=== PATIENT | male | born 1945 | race Caucasian/White ===

== ENCOUNTER 2019-12-27 12:41 | Emergency (ER) | payer OTHER, SELFPAY ==
[2019-12-27 12:50] VITALS: BP 143/83; PULSE 98; RESP 22; TEMP 36.8; O2SAT 94; BMI 30.5
--- NOTE | 2019-12-27 13:05 | PC.NURSE ---
States pain after pulling up, she has Parkinson's.
--- NOTE | 2019-12-27 13:11 | ED_ITS ---
HPI - General Adult General Chief complaint: Extremity Injury, Upper Stated complaint: injured left shoulder helping Time Seen by Provider: 12/27/19 13:00 Source: patient Mode of arrival: Ambulatory Limitations: no limitations History of Present Illness HPI narrative: 74-year-old male here for evaluation of left shoulder injury. Patient states that he was trying to help his in the bathroom and as he was pulling/lifting her up from the toilet he had a sudden pain in his left shoulder. Since that time he has had limited range of motion secondary to pain. No prior injuries to his shoulder. Has not tried anything for the symptoms prior to arrival. He has no left wrist or left elbow symptoms. He states that the pain goes from the his shoulder to his upper back down to his left elbow. No chest pain. Related Data Allergies Allergy/AdvReac Type Severity Reaction Status Date / Time Corticosteroids Allergy Hives Verified 12/27/19 13:15 (Glucocorticoids) Review of Systems Constitutional Constitutional: Denies fever(s) Cardiovascular Cardiovascular: Denies chest pain and Denies dyspnea Respiratory Respiratory: Denies dyspnea Gastrointestinal Gastrointestinal: Denies abdominal pain Musculoskeletal Comments: Left shoulder pain Integumentary/Breasts Skin/Breast: Denies lesions and Denies rash Neurologic Comments: Tingling lateral aspect left shoulder Hematologic/Lymphatic Hematologic/Lymphatic: Denies easy bleeding and Denies easy bruising Patient History Medical History Hypertension (Acute) Social History Smoking Status: Never smoker Smoking Status: Never smoker alcohol intake frequency: 0-2 drinks per day Substance Use Type: does not use Exam Initial Vital Signs Initial Vital Signs: Vital Signs Temperature 98.2 F 12/27/19 12:50 Pulse Rate 98 H 12/27/19 12:50 Respiratory Rate 22 12/27/19 12:50 Blood Pressure 143/83 H 12/27/19 12:50 Pulse Oximetry 94 12/27/19 12:50 Const General: cooperative and comfortable Resp Effort & Inspection: normal respiratory effort Auscultation: clear to auscultation bilaterally Cardio Rate: regular rate Rhythm: regular rhythm Pulses: radial pulses present on the left Skin Lesions: no lesions Rashes: no rashes Neuro Sensory Exam: no sensory deficits noted Extrem Other: Left hand left wrist left elbow unremarkable. Patient can touch his right shoulder with his left hand. Has a negative drop can test, has a negative cross-arm test, has a negative Neer test, has a positive Carson test. Course Orders Ordered: Discontinued Medications Ketorolac Tromethamine (Toradol) 30 mg IM NOW ONE Stop: 12/27/19 13:13 Last Admin: 12/27/19 13:24 Dose: 30 mg Documented by: PABLO Vital Signs Vital signs: Vital Signs - 8 hr 12/27/19 12:50 Temperature 98.2 F Pulse Rate 98 H Respiratory Rate 22 Blood Pressure 143/83 H Pulse Oximetry 94 Medical Decision Making MDM Narrative Medical decision making narrative: Low suspicion for fracture. His temp physical consistent with a rotator cuff injury. I have low suspicion that it is torn secondary to the fact that he has got a negative drop can test. He has an appoint with his primary doctor on Friday of this week. Was given shot of Toradol. Denied the need for any stronger pain medication. He was given return precautions. Low suspicion for fracture dislocation given the fact that he can move his shoulder. Will hold on radiologic studies. Patient expressed understanding and agreement. Discharge Plan Departure Patient Disposition: Home Clinical Impression: Rotator cuff strain Qualifiers: Encounter type: initial encounter Laterality: left Qualified Code(s): S46.012A - Strain of muscle(s) and tendon(s) of the rotator cuff of left shoulder, initial encounter Instructions: DI for Rotator Cuff Injury Activity Restrictions/Additional Instructions: Recommend that you keep your scheduled appointment on Friday with your primary provider to discuss further workup to include physical therapy. Recommend that you continue the rest your medications as directed. Tomorrow you can start taking an anti-inflammatories such as Motrin or Naprosyn. Return to the emergency department for any new or worsening symptoms Referrals: Guillaume Allen MD [Primary Care Provider] -
--- NOTE | 2019-12-27 13:11 | PC.NURSE ---
INcrease pain with movement of right shoulder after helping his up. Patient can adjust to obtain position of comfort. Good CMS, increase oain with some movements such as arm out thumb down to the ground. Tender to palpation along scapula and neck muscles but not on C-spine
[2019-12-27] MEDS: KETOROLAC 60 MG/2 ML VIAL 30 MG IM (13:24)
[2019-12-27 13:43] VITALS: BP 144/83; PULSE 86; RESP 16; O2SAT 94
== END 2019-12-27 13:43 | disposition home or self-care (01) ==
PROVIDERS: Emergency Provider Emergency Medicine; PCP Internal Medicine
DX: S46.012A Strain of muscle(s) and tendon(s) of the rotator cuff of left shoulder, initial encounter (principal)
CPT/HCPCS: 96372; 99283; J1885